=== PATIENT | female | born 1985 | race Caucasian/White ===

== ENCOUNTER 2019-01-17 16:12 | Emergency (ER) | payer OTHER, SELFPAY ==
[2019-01-17 16:22] VITALS: BP 121/69; PULSE 99; RESP 20; TEMP 36.8; O2SAT 98
--- NOTE | 2019-01-17 17:15 | W.ED.GENAD ---
Discharge Plan Disposition Patient Disposition: HOME Condition: Good Discharge Details Chief Complaint: HOTEL YARDPERSON Clinical Impression: Worried well, Fall Primary Care Provider: Whitney,Local ED Provider: Helio Nesbitt Home Meds and New Rx's Prescriptions: No Action PNV cmb#95-ferrous fumarate-FA [] 28 mg iron- 800 mcg Tablet 1 tab PO DAILY RF: 0 Discharge Instructions Instructions: Placenta Previa (ED), Placental Abruption (GEN) Additional Instructions: Please follow-up with your OB doctor as soon as possible for reassessment. I have included discharge instructions with information for signs and symptoms that I would like you to keep in mind and if you develop these please return immediately. If you notice any worsening of your symptoms, or any new symptoms such as vaginal bleeding, abdominal pain vomiting, diarrhea, fever, chills, shortness of breath, chest pain, numbness, weakness, or fainting , please return immediately to the emergency department for reevaluation. Please follow up with your primary care provider as soon as possible for reassessment and reevaluation. As always, it was a pleasure participating in your medical care today. Discharge Data Discharge Date/Time-TO BE ENTERED AT DEPARTURE: 01/17/19 17:24 Medical Decision Making This is a very pleasant 33-year-old female who is a who presents for evaluation after a fall. The patient states that yesterday she fell and soft snow and landed on the right side of her hip. She had no pain or complaint after this. No vaginal discharge, pain or change in baby's movements, no vaginal bleeding. She has had no complaints whatsoever. She was concerned though after she placed her event on a message board, when other users recommended that she come get checked out for placental abruption. Physical exam is inconsistent at this time with placental abruption based on both physical exam findings and historical findings. Portable limited bedside ultrasound was performed, baby demonstrated a heart rate of 173, vigorous, placenta was easily visualized, and at time of exam there was no evidence of vascular lakes or abruption. Fortunately it is the weekend and ultrasound is not currently available. With no abdominal tenderness, normal bedside portable ultrasound exam which is limited by nature, and a very unremarkable history and signs and symptoms and consistent with central previa, placental abruption, or other distress, I feel that an acute or life-threatening pathology is unlikely. However in spite of this I had a long conversation with the patient describing how we could certainly facilitate a ultrasound via contacting the OB, transfer to a tertiary care facility, as well as blood work for Kleihauer-Betke test, or further eval. I also very clearly stated that my ultrasound is limited, and I am not a formal certified surgical technologist and that the only way to have appropriate visualization of the placenta and baby is for a registered continuous dryout operator to perform the test, understanding this, and through a long shared decision making process discussing well with both the risks and benefits of potential plans, and respecting patient's wishes, the patient states that she feels very reassured after a benign-appearing exam and history, and would like to go back to [place]. I encouraged her to immediately follow-up with her OB doctor for formal ultrasound and reevaluation the patient understands. I discussed red flags which to return and for which to immediately seek evaluation patient understands. I have extensively reviewed the treatment plan and discharge instructions with the patient. I have addressed all patient concerns at this time. The patient was made aware of what symptoms to monitor for that would warrant a return to the emergency department. Discussed the plan with the patient, they demonstrate verbal understanding and agreement with our assessment and plan at this time. HPI General Date/Time Provider Initiated Documentation: 01/17/19 16:27. HPI Narrative: This is a 33-year-old female with no significant past medical history who is a who is currently 27 weeks from [place]. She presents today for evaluation. Patient states that yesterday morning she was cross-country skiing when she fell very gently onto the soft snow onto her right side. She had a small amount of pain in her hip at that time, but denies any abdominal pain pelvic pain, pelvic pressure, vaginal discharge or vaginal bleeding. She denies any changes in baby kicking, or changes in movement. Patient states that she actually felt very well, however she commented her event on an online message board for other women, and the other woman said that she should be checked out for evaluation of placental abruption. Because of this the patient stopped off at the emergency department on her way back down to [place]. The patient has no other complaints, and she is very david and honest stating that she feels fine however she was concerned due to the concern of those on the message board. Patient denies any previous complications of the , she states that her Rh status is Rh+ and did not need RhoGam during her last . She has no other complaints or other modifying factors at this time. Related Data Home Medications Medication Instructions Recorded Confirmed PNV cmb#95-ferrous fumarate-FA 1 tab PO DAILY 01/17/19 01/17/19 [] Allergies Allergy/AdvReac Type Severity Reaction Status Date / Time No Known Allergies Allergy Unverified 01/17/19 16:26 General Stated Complaint: HOTEL YARDPERSON MAIDA: 4 Review of Systems Review of Systems All systems reviewed & are unremarkable except as noted in HPI and below PFSH Social History Smoking and Tabacco status: Never Exam Narrative Exam Narrative: 1.Const: Well-nourished, Well-developed, appearing stated age 2.Eyes: PERRL, no conjunctival injection, and symmetrical lids. 3.ENT: Atraumatic external nose and ears. Moist MM. Neck: Symmetric, trachea midline, No thyromegaly. 4.CVS: +S1/S2, No murmurs or gallops. Peripheral pulses 2+ and equal in all extremities. Brisk capillary refill in all extremities. 5.RESP: Unlabored respiratory effort. Clear to auscultation bilaterally. No wheezes rales or rhonchi 6.GI: Soft, Nontender/Nondistended, No hepatosplenomegaly. No guarding or rebound. Appropriately gravid abdomen, no tenderness whatsoever. Babies easily palpable. No presenting part or signs of tenderness on palpation. No other significant abnormalities. No vaginal bleeding. No flank or CVA tenderness, no pelvis tenderness. No other abnormalities on exam. 7.MSK: Normocephalic/Atraumatic, Extremities w/o deformity or ttp No cyanosis or clubbing, Normal movement of all extremities 8.Skin: Warm, Dry. No rashes or lesions. 9.Neuro: product finisher II-XII grossly intact. Sensation grossly intact, no focal neurologic deficits. 10.Psych: (AAO) x3. Appropriate mood and affect Course Vital Signs Temperature 36.8 C 01/17/19 16:22 Pulse 99 H 01/17/19 16:22 Respiratory Rate 20 01/17/19 16:22 Blood Pressure 121/69 01/17/19 16:22 Pulse Oximetry 98 01/17/19 16:22 Temperature 36.8 C 01/17/19 16:22 Temperature Source Temporal Artery Scan 01/17/19 16:22 Pulse 99 H 01/17/19 16:22 Respiratory Rate 20 01/17/19 16:22 Respiratory Effort Non-Labored 01/17/19 16:22 Blood Pressure 121/69 01/17/19 16:22 Pulse Oximetry 98 01/17/19 16:22 Oxygen Delivery Method Room Air 01/17/19 16:22 Oxygen Flow Rate 0 01/17/19 16:22 Pain Level 0 01/17/19 16:51
--- NOTE | 2019-01-17 17:18 | ED.GENADUL_ITS ---
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 I have included discharge instructions with information for signs and symptoms that I would like you to keep in mind and if you develop these please return immediately. If you notice any worsening of your symptoms, or any new symptoms such as vaginal bleeding, abdominal pain vomiting, diarrhea, fever, chills, shortness of breath, chest pain, numbness, weakness, or fainting , please return immediately to the emergency department for reevaluation. Please follow up with your primary care provider as soon as possible for reassessment and reevaluation. As always, it was a pleasure participating in your medical care today. Discharge Data Discharge Date/Time-TO BE ENTERED AT DEPARTURE: 01/17/19 17:24 Medical Decision Making This is a very pleasant 33-year-old female who is a who presents for evaluation after a fall. The patient states that yesterday she fell and soft snow and landed on the right side of her hip. She had no pain or complaint after this. No vaginal discharge, pain or change in baby's movements, no vaginal bleeding. She has had no complaints whatsoever. She was concerned though after she placed her event on a message board, when other users recommended that she come get checked out for placental abruption. Physical exam is inconsistent at this time with placental abruption based on both physical exam findings and historical findings. Portable limited bedside ultrasound was performed, baby demonstrated a heart rate of 173, vigorous, placenta was easily visualized, and at time of exam there was no evidence of vascular lakes or abruption. Fortunately it is the weekend and ultrasound is not currently available. With no abdominal tenderness, normal bedside portable ultrasound exam which is limited by nature, and a very unremarkable history and signs and symptoms and consistent with central previa, placental abruption, or other distress, I feel that an acute or life-threatening pathology is unlikely. However in spite of this I had a long conversation with the patient describing how we could certainly facilitate a ultrasound via contacting the OB, transfer to a tertiary care facility, as well as blood work for Kleihauer-Betke test, or further eval. I also very clearly stated that my ultrasound is limited, and I am not a formal staff nuclear medicine technologist and that the only way to have appropriate visualization of the placenta and baby is for a registered medicaid business analyst to perform the test, understanding this, and through a long shared decision making process discussing well with both the risks and benefits of potential plans, and respecting patient's wishes, the patient states that she feels very reassured after a benign-appearing exam and history, and would like to go back to [place]. I encouraged her to immediately follow-up with her OB doctor for formal ultrasound and reevaluation the patient understands. I discussed red flags which to return and for which to immediately seek evaluation patient understands. I have extensively reviewed the treatment plan and discharge instructions with the patient. I have addressed all patient concerns at this time. The patient was made aware of what symptoms to monitor for that would warrant a return to the emergency department. Discussed the plan with the patient, they demonstrate verbal understanding and agreement with our a ssessment and plan at this time. HPI General Date/Time Provider Initiated Documentation: 01/17/19 16:27 . HPI Narrative: This is a 33-year-old female with no significant past medical history who is a who is currently 27 weeks from [place]. She presents today for evaluation. Patient states that yesterday morning she was cross- country skiing when she fell very gently onto the soft snow onto her right side. She had a small amount of pain in her hip at that time, but denies any abdominal pain pelvic pain, pelvic pressure, vaginal discharge or vaginal bleeding. She denies any changes in baby kicking, or changes in movement. Patient states that she actually felt very well, however she commented her event on an online message board for other women, and the other woman said that she should be checked out for evaluation of placental abruption. Because of this the patient stopped off at the emergency department on her way back down to [place]. The patient has no other complaints, and she is very david and honest stating that she feels fine however she was concerned due to the concern of those on the message board. Patient denies any previous complications of the , she states that her Rh status is Rh+ and did not need RhoGam during her last . She has no other complaints or other modifying factors at this time. 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 3.ENT: Atraumatic external nose and ears. Moist MM. Neck: Symmetric, trachea midline, No thyromegaly. 4.CVS: +S1/S2, No murmurs or gallops. Peripheral pulses 2+ and equal in all extremities. Brisk capillary refill in all extremities. 5.RESP: Unlabored respiratory effort. Clear to auscultation bilaterally. No wheezes rales or rhonchi 6.GI: Soft, Nontender/Nondistended, No hepatosplenomegaly. No guarding or rebound. Appropriately gravid abdomen, no tenderness whatsoever. Babies easily palpable. No presenting part or signs of tenderness on palpation. No other significant abnormalities. No vaginal bleeding. No flank or CVA tenderness, no pelvis tenderness. No other abnormalities on exam. 7.MSK: Normocephalic/Atraumatic, Extremities w/o deformity or ttp No cyanosis or clubbing, Normal movement of all extremities 8.Skin: Warm, Dry. No rashes or lesions. 9.Neuro: gallery or museum guide II-XII grossly intact. Sensation grossly intact, no focal neurologic deficits. 10.Psych: (AAO) x3. Appropriate mood and affect Course Vital Signs Temperature 36.8 C 01/17/19 16:22 Pulse 99 H 01/17/19 16:22 Respiratory Rate 20 01/17/19 16:22 Blood Pressure 121/69 01/17/19 16:22 Pulse Oximetry 98 01/17/19 16:22 Temperature 36.8 C 01/17/19 16:22 Temperature Source Temporal Artery Scan 01/17/19 16:22 Pulse 99 H 01/17/19 16:22 Respiratory Rate 20 01/17/19 16:22 Respiratory Effort Non-Labored 01/17/19 16:22 Blood Pressure 121/69 01/17/19 16:22 Pulse Oximetry 98 01/17/19 16:22 Oxygen Delivery Method Room Air 01/17/19 16:22 Oxygen Flow Rate 0 01/17/19 16:22 Pain Level 0 01/17/19 16:51
== END 2019-01-17 17:24 | disposition home or self-care (01) ==
LOC: ER 17:26
PROVIDERS: Emergency Provider Student in an Organized Health Care Education/Training Program
DX: M25.551 Pain in right hip (principal); Z33.1 Pregnant state, incidental; Z3A.27 27 weeks gestation of pregnancy; V00.321A Fall from snow-skis, initial encounter; Y93.24 Activity, cross country skiing
CPT/HCPCS: 99281